=== PATIENT | female | born 1995 | race Caucasian/White ===

== ENCOUNTER → 2020-03-10 15:22 | Outpatient (BNVA) | payer BC, SELFPAY | PROVIDERS: Visit Provider Obstetrics & Gynecology | DX: N89.8 Other specified noninflammatory disorders of vagina (principal) | CPT/HCPCS: 87210 ==

== ENCOUNTER → 2021-03-15 10:26 | Outpatient (BNVA) | payer SELFPAY | PROVIDERS: Visit Provider Nurse Practitioner Women's Health | DX: Z01.419 Encounter for gynecological examination (general) (routine) without abnormal findings (principal); N76.0 Acute vaginitis; B96.89 Other specified bacterial agents as the cause of diseases classified elsewhere | CPT/HCPCS: 88175 ==

== ENCOUNTER → 2021-04-19 14:20 | Outpatient (BNVA) | payer SELFPAY | PROVIDERS: Visit Provider Nurse Practitioner Women's Health | DX: N89.8 Other specified noninflammatory disorders of vagina (principal) | CPT/HCPCS: 87070; 87106; 87107; 87205 ==

== ENCOUNTER → 2022-11-06 16:27 | Outpatient (BNVA) | payer BC, SELFPAY | PROVIDERS: Visit Provider Nurse Practitioner Women's Health | DX: N89.8 Other specified noninflammatory disorders of vagina (principal) | CPT/HCPCS: 87491; 87591; 87661 ==

== ENCOUNTER 2025-02-24 21:04 | Emergency (ER) | payer SELFPAY ==
[2025-02-24 21:09] VITALS: BP 131/76; PULSE 95; TEMP 36.3; O2SAT 96
--- OUTSIDE RECORDS SUMMARY | 2025-02-24 21:15 | XMS_ITS | Clinical Summary ---
Author Organization [facility] Address [address] [place] [address] Care Team Providers Care Cytogeneticist Name Role Phone Unavailable Primary Care Provider Unavailabl e Immunizations Immunization Administration Dates Next Due Influenza Seasonal Unspecified Formulation IM Social History Tobacco Use Types Packs/Day Years Used Date Smoking Tobacco: Never Assessed Comments Unknown Sex and Gender Information Value Date Recorded Sex Assigned at Not on file Legal Sex Female 5:16 PM CDT Gender Identity Not on file Sexual Orientation Not on file Plan of Treatment Health Maintenance Due Date Last Done Comments DTAP/TDAP/TD VACCINES (1 - Tdap) 2014 HEPATITIS B VACCINES (1 of 3 - 19+ 3-dose series) 2014 CERVICAL CANCER SCREENING 2016 HPV/Cotest (21-29) 2016 PAP SMEAR 2016 INFLUENZA VACCINE (#1) 2024 06/01/2021 HPV VACCINES Aged Out No longer eligi ble based on patient's age to complete this topic
[2025-02-25 00:18] VITALS: BP 134/80; PULSE 83; O2SAT 98
[2025-02-25] MEDS: lidocaine-epi 1% 20 mL INJ 10 ML INJECTION (00:35)
[2025-02-25] MEDS: cephALEXin 500 mg Capsule PO (00:40)
[2025-02-25] MEDS: tetanus-dipt-pertussis 0.5 mL SDV IM (02:03)
[2025-02-25 02:12] VITALS: BP 121/78; PULSE 72; O2SAT 100
--- NOTE | 2025-02-25 18:57 | ED_ITS ---
HPI - Wound/Laceration General: Chief Complaint: Wound/Laceration Stated Complaint: R leg Gash next to knee Time Seen by Provider: 02/25/25 00:10 History of Present Illness: Patient presents after sustaining a laceration to the right medial distal thigh from an X-Acto knife. The injury occurred when the patient forgot the knife was in a grocery container pouch and accidentally cut themselves. The patient wrapped the wound prior to arrival. No involvement of the joint or muscle was noted on initial inspection. The patient denies any other complaints. No mention of tetanus risk factors or other injuries. Related Data Home Medications ?Medication ?Instructions ?Recorded ?Confirmed levonorgestrel 17.5 mcg/24 hr (up intrauterine 3 11/06/22 to 5 yrs) 19.5mg intrauterine device (Kyleena) Previous Rx's ?Medication ?Instructions ?Recorded clindamycin HCl 300 mg capsule 300 mg PO BID 7 days #1 4 caps 11/06/22 Allergies Allergy/AdvReac Type Severity Reaction Status Date / Time metronidazole Allergy Mild rash Verified 02/24/25 21:16 bupropion (From Wellbutrin) AdvReac Seizures Verified 02/24/25 21:16 PFS ED PFSH: Medical History Depression No pertinent past medical history neghx: htn,dm,thyroid,dvt/pe PCP: None Primary oligomenorrhea 12/12/2017: TSH 0.995, Prolactin 8.7. Both are normal. Negative evaluation. Started on control pills. Surgical History No history of previous surgery Family History Grandmother Hypertension maternal Heart disease maternal Hyperlipidemia maternal Denies family history of Colon cancer Ovarian cancer Breast cancer Uterine cancer Thyroid disease Stroke Social History Substance/Drug Use: never Physical Exam Const: COMMON NORMALS: no acute distress, patient oriented x3 and alert HENMT: COMMON NORMALS: normocephalic and atraumatic HEAD & SCALP: normocephalic and atraumatic Eye: COMMON NORMALS: Equal, round and reactive pupils present, EOMs intact bilaterally and no scleral icterus PUPIL: Yes Equal, round and reactive pupils present Resp: COMMON NORMALS: normal respiratory effort and No retractions Cardio: COMMON NORMALS: regular rate, regular rhythm and No murmurs present (Cardio) RATE: regular rate RHYTHM: regular rhythm GI: COMMON NORMALS: Normal to inspection, nondistended, normoactive bowel sounds present, Soft to palpation and non-tender PALPATION: Yes Soft to palpation Extremity: OTHER: 7 cm linear laceration of the right medi al distal thigh to the level of the subcutaneous fat. No joint involvement. No active bleeding. No foreign body. Neuro: COMMON NORMALS: patient oriented x3 SENSORIUM/ORIENTATION: Yes alert Procedures Laceration Laceration 1: Site: lower extremity Side (If applicable): right Size (cm): 7 Description: linear Depth: simple, single layer Local Anesthetic: lidocaine 1% and with epi Amount of anesthesia used (mL): 10 Pre-repair: wound explored and irrigated extensively Skin layer closed with: nylon Size (cm): 4-0 Number of sutures: 14 Technique: simple, interrupted Course Vital Signs: Vital signs: Vital Signs Temperature 97.4 F L 02/24/25 21:09 Pulse Rate 72 02/25/25 02:12 Blood Pressure 121/78 02/25/25 02:12 Pulse Oximetry 100 02/25/25 02:12 Oxygen Delivery Me thod Room Air 02/25/25 00:18 MDM - Wound/Laceration Medical Decision Making Wound was thoroughly cleaned and then closed using super of the sutures with excellent approximation of the tissues. A dressing was placed. She will be discharged in stable and improved condition with instructions to have sutures removed in roughly 7 to 10 days. She shows good understanding and agrees to the plan. No radiology studies performed this visit Discharge Plan Discharge Patient Disposition: Home Clinical Impression: Leg laceration Condition: Stable Prescriptions: No Action povidone-iodine [Betadine Swabsticks] 10 % swab 1 applic topical ONCE Qty: 1 0RF Kyleena 17.5 mcg/24 hrs (5 yrs) 19.5 mg intrauterine device 1 device intrauterine ONCE Qty: 1 0RF Kyleena 17.5 mcg/24 hrs (5 yrs) 19.5 mg intrauterine device intrauterine clindamycin HCl 300 mg capsule 300 mg PO BID 7 Days Qty: 14 0RF Discharge Orders: Discharge ED (Routine); Ordered 02/25/25 Ordered By: Favian Rojo Discharge Diet: Usual diet Discharge Activity: Increase activity as tolerated Patient Instructions: Care For Your Stitches (ED), Laceration (ED), Patient Portal & [facility] Instructions Activity Restrictions/Additional Instructions: Please have your sutures removed in roughly 7 to 10 days. It is safe to gently wash the region with soap and water. Please avoid [place], streams, k[place] water and do not submerge it in a bathtub until the wound is closed and sutures have been removed. It is safe to shower with it and have water and soap run over it Print Language: Macanese Coding Level of Care Code ED B2B Sales Executive for Anita Austin
== END 2025-02-25 02:14 | disposition home or self-care (01) ==
PROVIDERS: Emergency Provider Student in an Organized Health Care Education/Training Program
DX: S71.111A Laceration without foreign body, right thigh, initial encounter (principal); W26.0XXA Contact with knife, initial encounter
CPT/HCPCS: 12002; 90471; 90715; 99283; J9999